=== PATIENT | male | born 1935 | race Caucasian/White ===

== ENCOUNTER 2019-04-23 08:38 | Outpatient (CLI) | payer MEDICARE, SELFPAY ==
[2019-04-23 09:03] LABS: Basophils Absolute Auto 0.06 K/mm3 (0.00-0.10); Eosinophils Absolute Auto 0.14 K/mm3 (0.02-0.50); Eosinophils Percent Auto 2.3 % (1.0-6.0); Hematocrit 35.9 % (37.0-46.0); Hemoglobin 12.2 g/dL (12.4-15.3); Immature Granulocyte Absolute 0.03 K/mm3 (0.00-0.00); Immature Granulocyte Percent A 0.5 % (0.0-0.0); Lymphocytes Absolute Auto 1.78 K/mm3 (1.10-4.50); Lymphocytes Percent Auto 28.9 % (18.0-42.0); Mean Corpuscular Hemoglobin 33.3 pg (27.0-31.0); Mean Corpuscular Volume 98.1 fL (78.0-102.0); Mean Platelet Volume 9.3 fl (8.7-11.0); Monocytes Absolute Auto 0.61 K/mm3 (0.10-0.90); Monocytes Percent Auto 9.9 % (2.0-11.0); Neutrophils Absolute Auto 3.5 K/mm3 (1.7-7.2); Neutrophils Percent Auto 57.4 % (50.0-70.0); Platelet Count Result 234 K/mm3 (150-420); Red Blood Count 3.66 M/mm3 (4.70-6.10); Red Cell Distribution Width 12.5 % (11.6-14.4); White Blood Count 6.2 K/mm3 (4.8-10.8)
[2019-04-23 09:15] LABS: Partial Thromboplastin Time 25.9 SEC (22.3-31.6); Prothrombin Time 10.4 Seconds (9.64-11.0)
[2019-04-23 09:40] LABS: Hemoglobin A1C 5.1 % (<5.7)
[2019-04-23 09:57] LABS: Anion Gap 16.4 mmol/L (7-16); Blood Urea Nitrogen 28 mg/dL (7-18); Calcium 9.1 mg/dL (8.5-10.1); Carbon Dioxide 27 mmol/L (21-32); Chloride 104 mmol/L (98-108); Cholesterol 163 mg/dL (0-200); Estimated Glomerular Filt Rate 34; Free T4 Free Thyroxine 0.89 ng/dL (0.76-1.46); Glucose 121 mg/dL (70-99); HDL Direct 52 mg/dL (40-60); LDL Cholesterol Calculated 90 mg/dL (<130); Magnesium 2.4 mg/dL (1.8-2.4); Osmolality Calculated 302 mOsm/kg (285-295); Potassium 4.4 mmol/L (3.5-5.1); Prostate Specific Antigen 3.5 ng/mL (< OR = 4.0); Sodium 143 mmol/L (136-145); Thyroid Stimulating Hormone 2.71 uIU/mL (0.36-3.74); Triglycerides 104 mg/dL (0-150)
[2019-04-27 03:44] LABS: CRP, High Sensitivity 1.1 mg/L (***)
== END 2019-04-23 08:39 | disposition home or self-care (01) ==
DX: I25.10 Atherosclerotic heart disease of native coronary artery without angina pectoris (principal); N18.3 Chronic kidney disease, stage 3 (moderate); Z79.899 Other long term (current) drug therapy; Z12.5 Encounter for screening for malignant neoplasm of prostate
CPT/HCPCS: 36415; 80048; 80061; 83036; 83735; 84153; 84439; 84443; 85025; 85610; 85730; 86141; G0103

== ENCOUNTER 2020-08-26 09:49 | Outpatient (CLI) | payer MEDICARE, SELFPAY ==
[2020-08-26 10:15] LABS: Basophils Absolute Auto 0.04 K/mm3 (0.00-0.10); Basophils Percent Auto 0.8 % (0.0-1.0); Eosinophils Absolute Auto 0.07 K/mm3 (0.02-0.50); Eosinophils Percent Auto 1.3 % (1.0-6.0); Hematocrit 34.4 % (37.0-46.0); Hemoglobin 11.2 g/dL (12.4-15.3); Immature Granulocyte Absolute 0.03 K/mm3 (0.00-0.00); Immature Granulocyte Percent A 0.6 % (0.0-0.0); Lymphocytes Absolute Auto 1.55 K/mm3 (1.10-4.50); Lymphocytes Percent Auto 29.2 % (18.0-42.0); Mean Corpuscular HGB Conc 32.6 g/dL (32.0-36.0); Mean Corpuscular Hemoglobin 32.4 pg (27.0-31.0); Mean Corpuscular Volume 99.4 fL (78.0-102.0); Mean Platelet Volume 8.9 fl (8.7-11.0); Monocytes Absolute Auto 0.48 K/mm3 (0.10-0.90); Monocytes Percent Auto 9.1 % (2.0-11.0); Neutrophils Absolute Auto 3.1 K/mm3 (1.7-7.2); Platelet Count Result 211 K/mm3 (150-420); Red Blood Count 3.46 M/mm3 (4.70-6.10); Red Cell Distribution Width 12.7 % (11.6-14.4); White Blood Count 5.3 K/mm3 (4.8-10.8)
[2020-08-26 10:17] LABS: Add Urine Microscopic? YES; Appearance Urine Clear (Clear); Bilirubin Urine Negative (Negative); Blood Urine 1+ (Negative); Color Urine Light Yellow (Yellow); Glucose Urine UA Negative (Negative); Ketones Urine Negative (Negative); Leukocyte Esterase Ur Negative LEU/UL (Negative); Nitrate Urine Negative (Negative); Protein Urine Negative (Negative); Specific Grav Ur 1.015 (1.010-1.020); Urobilinogen Urine 0.2 mg/dL (0.2-1.0); pH Urine 5.5 (5.0-8.0)
[2020-08-26 10:24] LABS: Creatinine Urine 37.84 mg/dL (40-278)
[2020-08-26 10:29] LABS: Bacteria Urine None seen /hpf; RBC Urine 0-2 /hpf (0-2); Squamous Epithelial Cell Urine Rare /hpf (Few); WBC Urine None seen /hpf (0-3)
[2020-08-26 10:35] LABS: Total Protein Urine Random < 7.0 mg/dL (0.0-11.9); Ur Ttl Prot Creatinine Ratio 0.18 mg/mg (0-0.20)
[2020-08-26 11:05] LABS: Alanine Aminotransferase 31 U/L (16-63); Alkaline Phosphatase 57 U/L (46-116); Anion Gap 13 mmol/L (8-16); Aspartate Amino Transferase 14 U/L (15-37); Bilirubin,Total 0.7 mg/dL (0.00-1.00); Blood Urea Nitrogen 28 mg/dL (7-18); Calcium 8.7 mg/dL (8.5-10.1); Carbon Dioxide 26 mmol/L (21-32); Chloride 102 mmol/L (98-108); Estimated Glomerular Filt Rate 32; Glucose 129 mg/dL (70-99); Osmolality Calculated 299 mOsm/kg (285-295); Potassium 4.2 mmol/L (3.5-5.1); Prostate Specific Antigen 4.5 ng/mL (< OR = 4.0); Sodium 141 mmol/L (136-145); Total Protein 7.1 g/dL (6.4-8.2)
[2020-08-26 12:07] LABS: GGT 25 U/L (15-85)
[2020-08-29 05:28] LABS: Kappa\\Lambda Light Chains 2.46 (0.26-1.65); Lambda Light Chain 21.3 mg/L (5.7-26.3)
[2020-08-29 11:45] LABS: Parathyroid Intact 27 pg/mL (14-64)
[2020-08-29 12:52] LABS: Vitamin D 25 Hydroxy 39 ng/mL (30-100)
[2020-08-31 00:11] LABS: Albumin 4.2 g/dL (3.8-4.8); Alpha 1 Globulin 0.3 g/dL (0.2-0.3); Alpha 2 Globulin 0.7 g/dL (0.5-0.9); Beta 1 Globulin 0.4 g/dL (0.4-0.6); Protein, Total 6.9 g/dL (6.1-8.1)
== END 2020-08-26 09:50 | disposition home or self-care (01) ==
DX: N18.30 Chronic kidney disease, stage 3 unspecified (principal); I12.9 Hypertensive chronic kidney disease with stage 1 through stage 4 chronic kidney disease, or unspecified chronic kidney disease; N25.0 Renal osteodystrophy; Z12.5 Encounter for screening for malignant neoplasm of prostate
CPT/HCPCS: 36415; 80053; 81001; 82306; 82570; 82977; 83883; 83970; 84100; 84153; 84155; 84156; 84165; 85025; G0103

== ENCOUNTER 2020-11-16 07:24 | Outpatient (CLI) | payer MEDICARE, SELFPAY ==
[2020-11-16 07:44] LABS: Basophils Absolute Auto 0.04 K/mm3 (0.00-0.10); Basophils Percent Auto 0.7 % (0.0-1.0); Eosinophils Absolute Auto 0.13 K/mm3 (0.02-0.50); Eosinophils Percent Auto 2.3 % (1.0-6.0); Hematocrit 33.4 % (37.0-46.0); Hemoglobin 10.9 g/dL (12.4-15.3); Immature Granulocyte Absolute 0.03 K/mm3 (0.00-0.00); Immature Granulocyte Percent A 0.5 % (0.0-0.0); Lymphocytes Absolute Auto 1.74 K/mm3 (1.10-4.50); Lymphocytes Percent Auto 31.2 % (18.0-42.0); Mean Corpuscular HGB Conc 32.6 g/dL (32.0-36.0); Mean Corpuscular Hemoglobin 32.6 pg (27.0-31.0); Mean Platelet Volume 8.8 fl (8.7-11.0); Monocytes Absolute Auto 0.49 K/mm3 (0.10-0.90); Monocytes Percent Auto 8.8 % (2.0-11.0); Neutrophils Absolute Auto 3.2 K/mm3 (1.7-7.2); Neutrophils Percent Auto 56.5 % (50.0-70.0); Platelet Count Result 206 K/mm3 (150-420); Red Blood Count 3.34 M/mm3 (4.70-6.10); Red Cell Distribution Width 12.3 % (11.6-14.4); White Blood Count 5.6 K/mm3 (4.8-10.8)
[2020-11-16 08:08] LABS: Hemoglobin A1C < 4.7 % (<5.7)
[2020-11-16 09:05] LABS: Alanine Aminotransferase 32 U/L (16-63); Albumin Level 3.9 g/dL (3.4-5.0); Alkaline Phosphatase 57 U/L (46-116); Aspartate Amino Transferase 10 U/L (15-37); Bilirubin,Total 0.6 mg/dL (0.00-1.00); Blood Urea Nitrogen 25 mg/dL (7-18); Calcium 8.3 mg/dL (8.5-10.1); Carbon Dioxide 22 mmol/L (21-32); Estimated Glomerular Filt Rate 43; Free T4 Free Thyroxine 0.97 ng/dL (0.76-1.46); Glucose 105 mg/dL (70-99); Prostate Specific Antigen 3.4 ng/mL (< OR = 4.0); Thyroid Stimulating Hormone 1.82 uIU/mL (0.36-3.74); Total Protein 6.8 g/dL (6.4-8.2)
[2020-11-16 13:29] LABS: Anion Gap 8 mmol/L (8-16); Chloride 108 mmol/L (98-107); Osmolality Calculated 290 mOsm/kg (285-295); Potassium 4.3 mmol/L (3.4-5.0); Sodium 138 mmol/L (137-145)
[2020-11-18 22:26] LABS: Kappa\\Lambda Light Chains 2.32 (0.26-1.65); Lambda Light Chain 25.3 mg/L (5.7-26.3)
[2020-11-20 04:39] LABS: Alpha 1 Globulin 0.3 g/dL (0.2-0.3); Alpha 2 Globulin 0.7 g/dL (0.5-0.9); Beta 1 Globulin 0.4 g/dL (0.4-0.6); Protein, Total 6.8 g/dL (6.1-8.1)
== END 2020-11-16 07:25 | disposition home or self-care (01) ==
LOC: CHSLAB 07:28
PROVIDERS: PCP Family Medicine
DX: R97.20 Elevated prostate specific antigen [PSA] (principal); D53.9 Nutritional anemia, unspecified; R73.02 Impaired glucose tolerance (oral); N18.30 Chronic kidney disease, stage 3 unspecified; E03.9 Hypothyroidism, unspecified
CPT/HCPCS: 36415; 80053; 83036; 83883; 84153; 84155; 84165; 84439; 84443; 85025

== ENCOUNTER 2021-04-12 08:03 | Outpatient (CLI) | payer MEDICARE, SELFPAY ==
[2021-04-12 09:14] LABS: Hemoglobin A1C < 4.7 % (<5.7)
[2021-04-12 09:31] LABS: Alanine Aminotransferase 24 U/L (16-63); Albumin Level 3.9 g/dL (3.4-5.0); Alkaline Phosphatase 56 U/L (46-116); Anion Gap 10 mmol/L (8-16); Aspartate Amino Transferase < 10 U/L (15-37); Bilirubin,Total 0.6 mg/dL (0.00-1.00); Blood Urea Nitrogen 33 mg/dL (7-18); Calcium 8.5 mg/dL (8.5-10.1); Carbon Dioxide 26 mmol/L (21-32); Chloride 105 mmol/L (98-108); Cholesterol 131 mg/dL (0-200); Estimated Glomerular Filt Rate 33; Glucose 108 mg/dL (70-99); HDL Direct 55 mg/dL (40-60); LDL Cholesterol Calculated 71 mg/dL (<130); NT Pro B Type Natriuretic Pept 473 pg/mL (0-450); Osmolality Calculated 300 mOsm/kg (285-295); Potassium 5.1 mmol/L (3.5-5.1); Prostate Specific Antigen 3.6 ng/mL (< OR = 4.0); Sodium 141 mmol/L (136-145); Thyroid Stimulating Hormone 2.55 uIU/mL (0.36-3.74); Total Protein 6.9 g/dL (6.4-8.2); Triglycerides 25 mg/dL (0-150)
[2021-04-12 09:48] LABS: Basophils Absolute Auto 0.04 K/mm3 (0.00-0.10); Basophils Percent Auto 0.6 % (0.0-1.0); Eosinophils Absolute Auto 0.12 K/mm3 (0.02-0.50); Eosinophils Percent Auto 1.9 % (1.0-6.0); Hematocrit 33.7 % (37.0-46.0); Immature Granulocyte Absolute 0.02 K/mm3 (0.00-0.00); Immature Granulocyte Percent A 0.3 % (0.0-0.0); Lymphocytes Absolute Auto 1.74 K/mm3 (1.10-4.50); Lymphocytes Percent Auto 28.2 % (18.0-42.0); Mean Corpuscular HGB Conc 32.6 g/dL (32.0-36.0); Mean Corpuscular Hemoglobin 33.3 pg (27.0-31.0); Mean Corpuscular Volume 102.1 fL (78.0-102.0); Mean Platelet Volume 9.8 fl (8.7-11.0); Monocytes Absolute Auto 0.66 K/mm3 (0.10-0.90); Monocytes Percent Auto 10.7 % (2.0-11.0); Neutrophils Absolute Auto 3.6 K/mm3 (1.7-7.2); Neutrophils Percent Auto 58.3 % (50.0-70.0); Platelet Count Result 210 K/mm3 (150-420); Red Cell Distribution Width 12.1 % (11.6-14.4); White Blood Count 6.2 K/mm3 (4.8-10.8)
[2021-04-15 19:45] LABS: Kappa\\Lambda Light Chains 2.55 (0.26-1.65); Lambda Light Chain 21.2 mg/L (5.7-26.3)
== END 2021-04-12 08:04 | disposition home or self-care (01) ==
LOC: CHSLAB 08:06
PROVIDERS: PCP Family Medicine
DX: I25.10 Atherosclerotic heart disease of native coronary artery without angina pectoris (principal); D53.9 Nutritional anemia, unspecified; N18.30 Chronic kidney disease, stage 3 unspecified; Z79.899 Other long term (current) drug therapy; C61 Malignant neoplasm of prostate; R06.00 Dyspnea, unspecified
CPT/HCPCS: 36415; 80053; 80061; 83036; 83880; 83883; 84153; 84443; 85025

== ENCOUNTER 2021-10-11 07:10 | Outpatient (CLI) | payer MEDICARE, SELFPAY ==
[2021-10-11 07:34] LABS: Basophils Absolute Auto 0.04 K/mm3 (0.00-0.10); Basophils Percent Auto 0.8 % (0.0-1.0); Eosinophils Absolute Auto 0.13 K/mm3 (0.02-0.50); Eosinophils Percent Auto 2.4 % (1.0-6.0); Hematocrit 31.8 % (37.0-46.0); Hemoglobin 10.7 g/dL (12.4-15.3); Immature Granulocyte Absolute 0.02 K/mm3 (0.00-0.00); Immature Granulocyte Percent A 0.4 % (0.0-0.0); Lymphocytes Absolute Auto 1.89 K/mm3 (1.10-4.50); Lymphocytes Percent Auto 35.5 % (18.0-42.0); Mean Corpuscular HGB Conc 33.6 g/dL (32.0-36.0); Mean Corpuscular Hemoglobin 34.6 pg (27.0-31.0); Mean Corpuscular Volume 102.9 fL (78.0-102.0); Mean Platelet Volume 9.4 fl (8.7-11.0); Monocytes Absolute Auto 0.44 K/mm3 (0.10-0.90); Monocytes Percent Auto 8.3 % (2.0-11.0); Neutrophils Absolute Auto 2.8 K/mm3 (1.7-7.2); Neutrophils Percent Auto 52.6 % (50.0-70.0); Platelet Count Result 198 K/mm3 (150-420); Red Blood Count 3.09 M/mm3 (4.70-6.10); Red Cell Distribution Width 12.8 % (11.6-14.4); White Blood Count 5.3 K/mm3 (4.8-10.8)
[2021-10-11 08:17] LABS: Alanine Aminotransferase 26 U/L (16-63); Albumin Level 3.9 g/dL (3.4-5.0); Alkaline Phosphatase 52 U/L (46-116); Anion Gap 9 mmol/L (8-16); Aspartate Amino Transferase 12 U/L (15-37); Bilirubin,Total 0.5 mg/dL (0.00-1.00); Blood Urea Nitrogen 19 mg/dL (7-18); Calcium 8.4 mg/dL (8.5-10.1); Carbon Dioxide 25 mmol/L (21-32); Chloride 105 mmol/L (98-108); Estimated Glomerular Filt Rate 37; Free T4 Free Thyroxine 0.92 ng/dL (0.76-1.46); Glucose 118 mg/dL (70-99); Magnesium 2.5 mg/dL (1.8-2.4); NT Pro B Type Natriuretic Pept 366 pg/mL (0-450); Osmolality Calculated 291 mOsm/kg (285-295); Prostate Specific Antigen 4.3 ng/mL (< OR = 4.0); Sodium 139 mmol/L (136-145); Thyroid Stimulating Hormone 2.32 uIU/mL (0.36-3.74)
[2021-10-11 08:56] LABS: Hemoglobin A1C < 4.7 % (<5.7)
[2021-10-14 12:29] LABS: Kappa\\Lambda Light Chains 2.35 (0.26-1.65); Lambda Light Chain 21.6 mg/L (5.7-26.3)
== END 2021-10-11 07:11 | disposition home or self-care (01) ==
PROVIDERS: PCP Family Medicine
DX: R73.01 Impaired fasting glucose (principal); R97.20 Elevated prostate specific antigen [PSA]; I50.9 Heart failure, unspecified; N18.30 Chronic kidney disease, stage 3 unspecified
CPT/HCPCS: 36415; 80053; 83036; 83735; 83880; 83883; 84153; 84439; 84443; 85025

== ENCOUNTER 2022-04-23 07:04 | Outpatient (CLI) | payer MEDICARE, SELFPAY ==
[2022-04-23 08:20] LABS: Basophils Absolute Auto 0.04 K/mm3 (0.00-0.10); Basophils Percent Auto 0.5 % (0.0-1.0); Eosinophils Percent Auto 1.4 % (1.0-6.0); Hematocrit 33.6 % (37.0-46.0); Hemoglobin 11.2 g/dL (12.4-15.3); Immature Granulocyte Absolute 0.03 K/mm3 (0.00-0.00); Immature Granulocyte Percent A 0.4 % (0.0-0.0); Lymphocytes Absolute Auto 0.93 K/mm3 (1.10-4.50); Lymphocytes Percent Auto 12.6 % (18.0-42.0); Mean Corpuscular HGB Conc 33.3 g/dL (32.0-36.0); Mean Corpuscular Hemoglobin 33.3 pg (27.0-31.0); Mean Platelet Volume 9.6 fl (8.7-11.0); Monocytes Absolute Auto 0.61 K/mm3 (0.10-0.90); Monocytes Percent Auto 8.3 % (2.0-11.0); Neutrophils Absolute Auto 5.7 K/mm3 (1.7-7.2); Neutrophils Percent Auto 76.8 % (50.0-70.0); Platelet Count Result 202 K/mm3 (150-420); Red Blood Count 3.36 M/mm3 (4.70-6.10); Red Cell Distribution Width 12.1 % (11.6-14.4); White Blood Count 7.4 K/mm3 (4.8-10.8)
[2022-04-23 08:31] LABS: Hemoglobin A1C 4.8 % (<5.7)
[2022-04-23 08:45] LABS: Alanine Aminotransferase 21 U/L (16-63); Albumin Level 3.9 g/dL (3.4-5.0); Alkaline Phosphatase 54 U/L (46-116); Anion Gap 8 mmol/L (8-16); Aspartate Amino Transferase < 10 U/L (15-37); Bilirubin,Total 0.7 mg/dL (0.00-1.00); Blood Urea Nitrogen 24 mg/dL (7-18); Calcium 8.6 mg/dL (8.5-10.1); Carbon Dioxide 28 mmol/L (21-32); Chloride 107 mmol/L (98-108); Cholesterol 124 mg/dL (0-200); Estimated Glomerular Filt Rate 42; Free T4 Free Thyroxine 0.95 ng/dL (0.76-1.46); Glucose 113 mg/dL (70-99); HDL Direct 54 mg/dL (40-60); LDL Cholesterol Calculated 61 mg/dL (<130); Magnesium 2.2 mg/dL (1.8-2.4); NT Pro B Type Natriuretic Pept 488 pg/mL (0-450); Osmolality Calculated 301 mOsm/kg (285-295); Potassium 4.4 mmol/L (3.5-5.1); Prostate Specific Antigen 3.9 ng/mL (< OR = 4.0); Sodium 143 mmol/L (136-145); Triglycerides 44 mg/dL (0-150)
[2022-04-26 11:32] LABS: Kappa\\Lambda Light Chains 2.14 (0.26-1.65)
== END 2022-04-23 07:05 | disposition home or self-care (01) ==
PROVIDERS: PCP Family Medicine; Visit Provider Urology
DX: I48.92 Unspecified atrial flutter (principal); T81.11XD Postprocedural cardiogenic shock, subsequent encounter; N42.89 Other specified disorders of prostate; C61 Malignant neoplasm of prostate; I50.9 Heart failure, unspecified; N18.32 Chronic kidney disease, stage 3b; Z79.899 Other long term (current) drug therapy
CPT/HCPCS: 36415; 80053; 80061; 83036; 83735; 83880; 83883; 84153; 84439; 84443; 85025

== ENCOUNTER 2023-04-27 07:29 | Outpatient (CLI) | payer MEDICARE, SELFPAY ==
[2023-04-27 07:52] LABS: Basophils Absolute Auto 0.05 K/mm3 (0.00-0.10); Basophils Percent Auto 0.8 % (0.0-1.0); Eosinophils Absolute Auto 0.11 K/mm3 (0.02-0.50); Eosinophils Percent Auto 1.9 % (1.0-6.0); Hemoglobin 10.8 g/dL (12.4-15.3); Immature Granulocyte Absolute 0.03 K/mm3 (0.00-0.00); Immature Granulocyte Percent A 0.5 % (0.0-0.0); Lymphocytes Absolute Auto 1.48 K/mm3 (1.10-4.50); Lymphocytes Percent Auto 25.1 % (18.0-42.0); Mean Corpuscular HGB Conc 32.7 g/dL (32.0-36.0); Mean Corpuscular Hemoglobin 32.5 pg (27.0-31.0); Mean Corpuscular Volume 99.4 fL (78.0-102.0); Mean Platelet Volume 9.1 fl (8.7-11.0); Monocytes Absolute Auto 0.66 K/mm3 (0.10-0.90); Monocytes Percent Auto 11.2 % (2.0-11.0); Neutrophils Absolute Auto 3.6 K/mm3 (1.7-7.2); Neutrophils Percent Auto 60.5 % (50.0-70.0); Platelet Count Result 197 K/mm3 (150-420); Red Blood Count 3.32 M/mm3 (4.70-6.10); White Blood Count 5.9 K/mm3 (4.8-10.8)
[2023-04-27 08:00] LABS: Hemoglobin A1C < 4.7 % (<5.7)
[2023-04-27 09:10] LABS: Alanine Aminotransferase 18 U/L (16-63); Albumin Level 3.9 g/dL (3.4-5.0); Alkaline Phosphatase 52 U/L (46-116); Anion Gap 10 mmol/L (8-16); Aspartate Amino Transferase < 10 U/L (15-37); Bilirubin,Total 0.4 mg/dL (0.00-1.00); Blood Urea Nitrogen 43 mg/dL (7-18); Calcium 8.8 mg/dL (8.5-10.1); Carbon Dioxide 27 mmol/L (21-32); Chloride 105 mmol/L (98-108); Estimated Glomerular Filt Rate 26; Free T4 Free Thyroxine 0.95 ng/dL (0.76-1.46); Glucose 108 mg/dL (70-99); Osmolality Calculated 305 mOsm/kg (285-295); Potassium 5.2 mmol/L (3.5-5.1); Prostate Specific Antigen 4.9 ng/mL (< OR = 4.0); Sodium 142 mmol/L (136-145); Thyroid Stimulating Hormone 2.46 uIU/mL (0.36-3.74); Total Protein 7.1 g/dL (6.4-8.2)
[2023-04-28 17:04] LABS: NT Pro B Type Natriuretic Pept 496 pg/mL (0-450)
== END 2023-04-27 07:30 | disposition home or self-care (01) ==
LOC: CHSLAB 07:32
PROVIDERS: PCP Family Medicine; Visit Provider Pathology Anatomic Pathology & Clinical Pathology
DX: I50.9 Heart failure, unspecified (principal); E03.9 Hypothyroidism, unspecified; R97.20 Elevated prostate specific antigen [PSA]; D53.9 Nutritional anemia, unspecified; R73.02 Impaired glucose tolerance (oral)
CPT/HCPCS: 36415; 80053; 83036; 83880; 84153; 84439; 84443; 85025

== ENCOUNTER 2023-06-26 07:14 | Outpatient (CLI) | payer MEDICARE, SELFPAY ==
[2023-06-26 07:48] LABS: Basophils Absolute Auto 0.04 K/mm3 (0.00-0.10); Basophils Percent Auto 0.7 % (0.0-1.0); Eosinophils Absolute Auto 0.11 K/mm3 (0.02-0.50); Hematocrit 33.6 % (37.0-46.0); Immature Granulocyte Absolute 0.03 K/mm3 (0.00-0.00); Immature Granulocyte Percent A 0.6 % (0.0-0.0); Lymphocytes Absolute Auto 1.63 K/mm3 (1.10-4.50); Lymphocytes Percent Auto 29.9 % (18.0-42.0); Mean Corpuscular HGB Conc 32.7 g/dL (32-36); Mean Corpuscular Hemoglobin 33.4 pg (27.0-31.0); Mean Corpuscular Volume 102.1 fL (78.0-102.0); Mean Platelet Volume 9.1 fl (8.7-11.0); Monocytes Absolute Auto 0.55 K/mm3 (0.10-0.90); Monocytes Percent Auto 10.1 % (2.0-11.0); Neutrophils Absolute Auto 3.09 K/mm3 (1.70-7.20); Neutrophils Percent Auto 56.7 % (50.0-70.0); Platelet Count Result 188 K/mm3 (150-420); Red Blood Count 3.29 M/mm3 (4.70-6.10); Red Cell Distribution Width 12.9 % (11.6-14.4); White Blood Count 5.5 K/mm3 (4.8-10.8)
[2023-06-26 08:12] LABS: Alanine Aminotransferase 28 U/L (16-63); Albumin Level 3.9 g/dL (3.4-5.0); Alkaline Phosphatase 52 U/L (46-116); Anion Gap 10 mmol/L (4-12); Aspartate Amino Transferase 11 U/L (15-37); Bilirubin,Total 0.8 mg/dL (0.00-1.00); Blood Urea Nitrogen 24 mg/dL (7-18); Calcium 8.5 mg/dL (8.5-10.1); Carbon Dioxide 25 mmol/L (21-32); Chloride 108 mmol/L (98-108); Estimated Glomerular Filt Rate 36; Glucose 110 mg/dL (70-99); Osmolality Calculated 301 mOsm/kg (285-295); Potassium 4.7 mmol/L (3.5-5.1); Sodium 143 mmol/L (136-145)
== END 2023-06-26 07:15 | disposition home or self-care (01) ==
PROVIDERS: PCP Family Medicine
DX: I50.9 Heart failure, unspecified (principal)
CPT/HCPCS: 36415; 80053; 85025